=== PATIENT | male | born 1955 | race Caucasian/White ===

== ENCOUNTER → 2021-01-25 | Outpatient (CLI) | payer OTHER ==
[~2021-01-25] MED LIST: ASPIRIN CHEWABL81 MG PO; FISH OIL + D31 EACH PO; FLEXERIL 10 MG10 MG PO; NAPROSYN EC 37375 MG PO; PREDNISONE 50 M50 MG PO; PRINIVIL20 MG PO
[2021-01-25 08:40] LABS: HEMOGLOBIN 15.4 gm/dl (14.0-17.5); RED BLOOD COUNT 4.9 M/UL (4.20-5.50); WHITE BLOOD COUNT 4.8 K/UL (4.5-11.0)
== END ==
LOC: LAB 07:33
PROVIDERS: Physician Assistant Medical
DX: C61 Malignant neoplasm of prostate (principal); R35.0 Frequency of micturition; E78.5 Hyperlipidemia, unspecified; N18.2 Chronic kidney disease, stage 2 (mild)
CPT/HCPCS: 36415; 80053; 80061; 81001; 84153; 85025

== ENCOUNTER → 2021-11-11 | Outpatient (CLI) | payer MEDICARE, OTHER | LOC: KOH-I 09:33 | DX: S46.001A Unspecified injury of muscle(s) and tendon(s) of the rotator cuff of right shoulder, initial encounter (principal); M19.011 Primary osteoarthritis, right shoulder; S46.211A Strain of muscle, fascia and tendon of other parts of biceps, right arm, initial encounter | CPT/HCPCS: 73221 ==

== ENCOUNTER → 2022-01-14 | Outpatient (CLI) | payer MEDICARE, OTHER ==
[~2022-01-14] MED LIST changes: +CRESTOR10 MG PO; +LISINOPRIL20 MG PO; +SILDENAFIL20 MG PO
[2022-01-14 11:32] LABS: HEMOGLOBIN 15.8 gm/dl (14.0-17.5); RED BLOOD COUNT 4.97 M/UL (4.20-5.50); WHITE BLOOD COUNT 6.9 K/UL (4.5-11.0)
[2022-01-14 11:43] LABS: BUN/CREATININE RATIO 10 (0-10)
== END ==
LOC: OPSV2 09:30
PROVIDERS: Anesthesiology
DX: Z01.818 Encounter for other preprocedural examination (principal)
CPT/HCPCS: 36415; 80048; 85025; 93005

== ENCOUNTER → 2022-01-23 | Day surgery (SDC) | payer MEDICARE, OTHER ==
[~2022-01-23] VITALS: Ht 182.9 cm; Wt 93.9 kg
== END | disposition home or self-care (01) ==
LOC: OR 06:30
DX: M75.101 Unspecified rotator cuff tear or rupture of right shoulder, not specified as traumatic (principal); G89.29 Other chronic pain; I10 Essential (primary) hypertension; E78.5 Hyperlipidemia, unspecified; Z88.0 Allergy status to penicillin; Z79.899 Other long term (current) drug therapy
CPT/HCPCS: C1713; J0171; J0690; J1100; J1885; J2370; J2405; J2704; J2710; J2795; J3010; J7120; P9045